=== PATIENT | female | born 1965 | race Caucasian/White ===

== ENCOUNTER 2017-11-11 19:28 | Emergency (ER) | payer SELFPAY ==
[2017-11-11] MEDS ORDERED: Ketorolac Tromethamine 30 MG/ML VIAL ONE (20:31)
[2017-11-11 20:58] LABS: Bilirubin Negative (Negative); Blood, Urine Negative (Negative); Clarity CLEAR (Clear); Glucose, Urine (Dipstick) >=1000 mg/dL (Negative); Leukocyte Negative (Negative); Nitrite Negative (Negative); Protein, Urine (Dipstick) Trace mg/dL (Neg-Trace); Specific Gravity, Urine 1.039 (1.002-1.036); Urobilinogen 0.2 mg/dL (0.2-1.0); pH, Urine 5.5 (5.0-9.0)
== END 2017-11-11 21:37 | disposition home or self-care (01) ==
LOC: ERS 19:28
DX: M54.6 Pain in thoracic spine (principal); G89.29 Other chronic pain; E11.9 Type 2 diabetes mellitus without complications; K50.90 Crohn's disease, unspecified, without complications; I10 Essential (primary) hypertension; J44.9 Chronic obstructive pulmonary disease, unspecified; F32.9 Major depressive disorder, single episode, unspecified; F41.9 Anxiety disorder, unspecified; Z79.899 Other long term (current) drug therapy; Z79.4 Long term (current) use of insulin
CPT/HCPCS: 81003; 96372; J1885

== ENCOUNTER 2021-01-06 21:34 | Emergency (ER) | payer SELFPAY ==
[2021-01-06] MEDS ORDERED: Morphine 4 MG/ML VIAL ONE (21:58)
[2021-01-06] MEDS ORDERED: Ketorolac Tromethamine 30 MG/ML VIAL ONE (21:58)
[2021-01-06] MEDS ORDERED: Diazepam 5 MG TAB ONE (21:58)
[2021-01-06] MEDS ORDERED: Dexamethasone 10 MG/ML VIAL ONE (21:59)
== END 2021-01-06 22:55 | disposition home or self-care (01) ==
LOC: ERS 21:34
DX: M54.50 Low back pain, unspecified (principal); G89.29 Other chronic pain
CPT/HCPCS: 96372; 99283; J1100; J1885; J2270

== ENCOUNTER 2021-01-20 00:36 | Inpatient (IN) | payer SELFPAY ==
[2021-01-20 01:26] LABS: #Basophils 0.1 thou/uL (0.0-0.2); #Eosinphils 0.4 thou/uL (0.0-0.7); #Lymphocytes 3.4 thou/uL (1.20-3.40); #Monocytes 0.9 thou/uL (0.11-0.59); #Neutrophils 10.6 thou/uL (1.40-6.50); %Basophils 0.6 % (0.0-1.0); %Eosinophils 2.8 % (0.0-10.0); %Lymphocytes 22.1 % (21.0-51.0); %Monocytes 5.7 % (0.0-10.0); %Neutrophils 68.8 % (42.0-75.0); Hemoglobin 14.6 g/dL (12.0-16.0); Mean Corpuscular HGB CONC 34.4 g/dL (32.0-36.0); Mean Corpuscular Hemoglobin 29.9 pg (27.0-31.0); Mean Corpuscular Volume 87.1 fL (78.0-98.0); Mean Platelet Volume 7.7 fL (7.4-10.4); Platelet Count 335 thou/uL (130-400); RBC Distribution Width 12.6 % (11.5-14.5); Red Blood Cell (RBC) Count 4.88 mill/uL (4.20-5.40); White Blood Cell (WBC) Count 15.4 thou/uL (4.8-10.8)
[2021-01-20 01:48] LABS: ALT (SGPT) 16 U/L (8-55); AST (SGOT) 12 U/L (5-34); Albumin 2.8 g/dL (3.5-5.0); Alkaline Phosphatase 140 U/L (40-110); Anion Gap 12 mmol/L (10-20); BUN (Urea Nitrogen) 5 mg/dL (9.8-20.1); Bilirubin, Total 0.3 mg/dL (0.2-1.2); Calc. Creatinine Clearance 0 mL/min (70-130); Calcium 9.1 mg/dL (7.8-10.44); Carbon Dioxide 29 mmol/L (22-29); Chloride 97 mmol/L (98-107); Globulin 3.2 g/dL (2.4-3.5); Potassium 3.8 mmol/L (3.5-5.1); Sodium 134 mmol/L (136-145)
[2021-01-20 01:55] LABS: Glucose 571 mg/dL (70-105)
[2021-01-20] MEDS ORDERED: Vancomycin 1 GM/200 ML BAG ONE (03:32)
[2021-01-20] MEDS ORDERED: Clindamycin/D5W 900 MG in Premix Bag 1 BAG IVPB SCH (04:00)
[2021-01-20] MEDS ORDERED: HumaLOG 300 UNITS/3 ML VIAL ONE (04:05)
[2021-01-20] MEDS ORDERED: Dextrose 5% in Water 1,000 ML IV PRN (05:30)
[2021-01-20] MEDS ORDERED: Ondansetron ODT 4 MG TAB PO PRN (05:30)
[2021-01-20] MEDS ORDERED: Dextrose 50% Abboject 50 ML SYRINGE SLOW IVP PRN (05:30)
[2021-01-20] MEDS ORDERED: hydrALAZINE 20 MG/ML VIAL SLOW IVP PRN (05:33)
[2021-01-20 05:41] VITALS: BMI 38.0
[2021-01-20] MEDS ORDERED: Vancomycin 1 GM in Premix Bag 1 BAG IVPB SCH (05:45)
[2021-01-20 05:58] LABS: Hemoglobin A1c Greater than 14.0 % (4.0-6.0)
[2021-01-20] MEDS: Sodium Chloride 0.9% 1,000 ML IV SCH ×3 (06:10→23:49)
[2021-01-20] MEDS: Nicotine 14 MG PATCH TD SCH ×2 (06:12→06:26)
[2021-01-20] MEDS ORDERED: Vancomycin HCl 500 MG in Sodium Chloride 0.9% 100 ML IVPB SCH (06:30)
[2021-01-20 08:25] LABS: Bacteria/HPF None Seen HPF (None Seen); Bilirubin Negative (Negative); Blood, Urine Trace (Negative); Clarity Clear (Clear); Glucose, Urine (Dipstick) Greater than 1000 mg/dL (Negative); Ketone, Urine Negative (Negative); Leukocyte 250 Leu/uL (Negative); Nitrite Negative (Negative); Protein, Urine (Dipstick) 200 mg/dL (Neg-Trace); Specific Gravity, Urine 1.024 (1.002-1.036); Squamous Epithelial 0-3 HPF (0-3); Urobilinogen Normal mg/dL (Less than 2); WBC/HPF 21-50 HPF (0-3); pH, Urine 6.5 (5.0-9.0)
[2021-01-20 08:40] LABS: Urine Culture Reflex Yes Yes
[2021-01-20] MEDS: Fluconazole 100 MG TAB PO SCH (09:52)
[2021-01-20] MEDS: Enoxaparin Sodium 40 MG/0.4 ML SYRINGE SC SCH (09:53)
[2021-01-20] MEDS: Famotidine 20 MG TAB PO SCH ×2 (09:53→21:50)
[2021-01-20] MEDS: metFORMIN 500 MG TAB PO SCH ×2 (09:54→16:11)
[2021-01-20] MEDS: Nystatin Cream 15 GM TUBE TOP PRN ×2 (10:33→21:51)
[2021-01-20] MEDS: Nystatin Cream 30 GM TUBE TOP SCH ×3 (10:50→21:51)
[2021-01-20] MEDS: HumaLOG 300 UNITS/3 ML VIAL SC PRN ×3 (11:15→21:50)
[2021-01-20 11:21] LABS: SARS-CoV-2 NAA Rapid Test Not Detected (NotDetected)
[2021-01-20] MEDS ORDERED: Iopamidol-370 76% 500 ML 1 ML ONE (12:10)
[2021-01-20] MEDS: HYDROcodone/Acetaminophen 5/325 mg Tablet PO PRN ×3 (12:39→23:49)
[2021-01-20] MEDS: Acetaminophen 325 MG TAB PO PRN ×3 (12:39→23:50)
[2021-01-20] MEDS ORDERED: Vancomycin HCl 1.5 GM in Sodium Chloride 0.9% 250 ML 300 ML IVPB SCH (18:00)
[2021-01-20] MEDS: Lantus 1000 UNITS/10 ML VIAL SC SCH (21:49)
[2021-01-20] MEDS: Clindamycin/D5W 600 MG in Premix Bag 1 BAG IVPB SCH (21:50)
[2021-01-21] MEDS: HYDROcodone/Acetaminophen 5/325 mg Tablet PO PRN ×3 (04:08→19:11)
[2021-01-21] MEDS: Acetaminophen 325 MG TAB PO PRN (04:09)
[2021-01-21] MEDS: Nicotine 14 MG PATCH TD SCH (04:32)
[2021-01-21] MEDS: diphenhydrAMINE 25 MG CAP PO PRN (04:42)
[2021-01-21 05:06] LABS: ALT (SGPT) 29 U/L (8-55); AST (SGOT) 65 U/L (5-34); Albumin 2.4 g/dL (3.5-5.0); Alkaline Phosphatase 120 U/L (40-110); Anion Gap 6 mmol/L (10-20); BUN (Urea Nitrogen) 8 mg/dL (9.8-20.1); Bilirubin, Total 0.3 mg/dL (0.2-1.2); Calc. Creatinine Clearance 159 mL/min (70-130); Calcium 8.2 mg/dL (7.8-10.44); Carbon Dioxide 28 mmol/L (22-29); Chloride 99 mmol/L (98-107); Globulin 2.7 g/dL (2.4-3.5); Glucose 267 mg/dL (70-105); Potassium 3.3 mmol/L (3.5-5.1); Protein, Total 5.1 g/dL (6.0-8.3); Sodium 130 mmol/L (136-145)
[2021-01-21 05:21] LABS: Hemoglobin 13.2 g/dL (12.0-16.0); Mean Corpuscular HGB CONC 33.8 g/dL (32.0-36.0); Mean Corpuscular Hemoglobin 29.2 pg (27.0-31.0); Mean Corpuscular Volume 86.5 fL (78.0-98.0); Mean Platelet Volume 7.5 fL (7.4-10.4); Platelet Count 306 thou/uL (130-400); RBC Distribution Width 12.3 % (11.5-14.5); Red Blood Cell (RBC) Count 4.53 mill/uL (4.20-5.40); White Blood Cell (WBC) Count 11.9 thou/uL (4.8-10.8)
[2021-01-21] MEDS: Sodium Chloride 0.9% 1,000 ML IV SCH ×2 (05:57→15:10)
[2021-01-21] MEDS: HumaLOG 300 UNITS/3 ML VIAL SC PRN ×3 (05:57→21:17)
[2021-01-21] MEDS: Clindamycin/D5W 600 MG in Premix Bag 1 BAG IVPB SCH ×3 (05:57→21:14)
[2021-01-21 06:44] LABS: Band 6 % (5-11); Eosinophils 2 % (0-10); Lymphocytes 30 % (21-51); MDiff Complete? YES; Monocytes 2 % (0-10); Neutrophil 60 % (42-75)
[2021-01-21] MEDS: metFORMIN 500 MG TAB PO SCH ×2 (08:41→17:20)
[2021-01-21] MEDS: Fluconazole 100 MG TAB PO SCH (08:42)
[2021-01-21] MEDS: Famotidine 20 MG TAB PO SCH ×2 (08:42→21:13)
[2021-01-21] MEDS: Enoxaparin Sodium 40 MG/0.4 ML SYRINGE SC SCH (08:43)
[2021-01-21] MEDS: Nystatin Cream 15 GM TUBE TOP PRN (08:43)
[2021-01-21] MEDS: Nystatin Cream 30 GM TUBE TOP SCH ×3 (08:51→21:14)
[2021-01-21] MEDS ORDERED: Potassium Chloride 20 MEQ TAB PO SCH (14:15)
[2021-01-21 17:38] LABS: Vancomycin, Trough Less than 1.1 ug/mL
[2021-01-21] MEDS: Lantus 1000 UNITS/10 ML VIAL SC SCH (21:16)
[2021-01-22] MEDS: diphenhydrAMINE 25 MG CAP PO PRN (00:27)
[2021-01-22 05:53] LABS: #Eosinphils 0.5 thou/uL (0.0-0.7); #Lymphocytes 3.2 thou/uL (1.20-3.40); #Monocytes 0.7 thou/uL (0.11-0.59); #Neutrophils 5.3 thou/uL (1.40-6.50); %Basophils 0.4 % (0.0-1.0); %Eosinophils 4.7 % (0.0-10.0); %Lymphocytes 32.8 % (21.0-51.0); %Monocytes 7.4 % (0.0-10.0); %Neutrophils 54.7 % (42.0-75.0); Mean Corpuscular HGB CONC 33.6 g/dL (32.0-36.0); Mean Corpuscular Hemoglobin 29.6 pg (27.0-31.0); Mean Corpuscular Volume 88.2 fL (78.0-98.0); Mean Platelet Volume 7.5 fL (7.4-10.4); Platelet Count 299 thou/uL (130-400); RBC Distribution Width 12.5 % (11.5-14.5); White Blood Cell (WBC) Count 9.6 thou/uL (4.8-10.8)
[2021-01-22 06:11] LABS: Anion Gap 9 mmol/L (10-20); BUN (Urea Nitrogen) 7 mg/dL (9.8-20.1); Calc. Creatinine Clearance 184 mL/min (70-130); Calcium 8.6 mg/dL (7.8-10.44); Carbon Dioxide 30 mmol/L (22-29); Chloride 105 mmol/L (98-107); Glucose 94 mg/dL (70-105); Potassium 3.5 mmol/L (3.5-5.1); Sodium 140 mmol/L (136-145)
[2021-01-22] MEDS: Nicotine 14 MG PATCH TD SCH (06:16)
[2021-01-22] MEDS: Clindamycin/D5W 600 MG in Premix Bag 1 BAG IVPB SCH (06:17)
[2021-01-22 07:46] VITALS: BP 132/83; TEMP 97.9
[2021-01-22] MEDS: metFORMIN 500 MG TAB PO SCH (07:52)
[2021-01-22] MEDS: Enoxaparin Sodium 40 MG/0.4 ML SYRINGE SC SCH ×2 (07:53→07:54)
[2021-01-22] MEDS: Nystatin Cream 30 GM TUBE TOP SCH (07:53)
[2021-01-22] MEDS: Famotidine 20 MG TAB PO SCH (07:53)
[2021-01-22] MEDS: Fluconazole 100 MG TAB PO SCH (07:53)
== END 2021-01-22 10:30 | disposition home or self-care (01) | DRG 872 ==
LOC: ERS 00:36 → SURG B 03:46
PROVIDERS: ADMIT Internal Medicine; ATTEND Internal Medicine
DX: A41.9 Sepsis, unspecified organism (principal); K50.90 Crohn's disease, unspecified, without complications; L03.314 Cellulitis of groin; B37.89 Other sites of candidiasis; F03.90 Unspecified dementia, unspecified severity, without behavioral disturbance, psychotic disturbance, mood disturbance, and anxiety; I10 Essential (primary) hypertension; J44.9 Chronic obstructive pulmonary disease, unspecified; Z96.651 Presence of right artificial knee joint; F32.A Depression, unspecified; E11.65 Type 2 diabetes mellitus with hyperglycemia; E66.9 Obesity, unspecified; E78.5 Hyperlipidemia, unspecified; B37.3 Candidiasis of vulva and vagina; Z20.822 Contact with and (suspected) exposure to COVID-19; F41.9 Anxiety disorder, unspecified; F17.210 Nicotine dependence, cigarettes, uncomplicated; Z88.0 Allergy status to penicillin; Z88.2 Allergy status to sulfonamides; Z90.49 Acquired absence of other specified parts of digestive tract; Z98.51 Tubal ligation status; Z88.8 Allergy status to other drugs, medicaments and biological substances; Z91.040 Latex allergy status; Z68.38 Body mass index [BMI] 38.0-38.9, adult
CPT/HCPCS: 36415; 36416; 72193; 80048; 80053; 80202; 81001; 83036; 83605; 84443; 85007; 85025; 85027; 87040; 87086; J1650; J1815; J3370; J3490; J7050; Q9967; U0002

== ENCOUNTER 2021-02-22 01:14 | Emergency (ER) | payer SELFPAY ==
[2021-02-22] MEDS ORDERED: Ketorolac Tromethamine 30 MG/ML VIAL ONE (03:31)
== END 2021-02-22 04:07 | disposition home or self-care (01) ==
LOC: ERS 01:14
DX: M25.552 Pain in left hip (principal); E11.9 Type 2 diabetes mellitus without complications; I10 Essential (primary) hypertension; J44.9 Chronic obstructive pulmonary disease, unspecified; F17.210 Nicotine dependence, cigarettes, uncomplicated
CPT/HCPCS: 96372; J1885